=== PATIENT | male | born 1980 | race Caucasian/White ===

== ENCOUNTER 2017-05-15 17:51 | Emergency (ER) | payer BC ==
[~2017-05-15] VITALS: Ht 177.8 cm; Wt 72.7 kg
[2017-05-15 18:55] VITALS: BP 141/98
== END 2017-05-15 18:56 ==
LOC: ER 17:52
DX: Z04.1 Encounter for examination and observation following transport accident (principal); F10.129 Alcohol abuse with intoxication, unspecified; V89.2XXA Person injured in unspecified motor-vehicle accident, traffic, initial encounter; Y93.89 Activity, other specified; Y92.89 Other specified places as the place of occurrence of the external cause; Y99.8 Other external cause status
CPT/HCPCS: 99283

== ENCOUNTER 2018-09-11 19:05 | Observation (INO) | payer BC ==
[~2018-09-11] VITALS: Ht 175.3 cm; Wt 58.3 kg
[2018-09-11 19:57] LABS: BASOPHILS % (AUTO) 0.3 % (0-1); EOSINOPHILS % (AUTO) 0.1 % (0-6); HEMATOCRIT 47.3 % (42.0-52.0); HEMOGLOBIN 16.8 g/dl (14.0-17.9); LYMPHOCYTES # (AUTO) 1.7 X10'3 (1.1-4.8); LYMPHOCYTES % (AUTO) 10.3 % (21-51); MEAN CORPUSCULAR HEMOGLOBIN 33.8 PG (27.0-31.0); MEAN CORPUSCULAR HGB CONC 35.6 g/dL (33.0-36.5); MEAN CORPUSCULAR VOLUME 94.9 FL (78-98); MEAN PLATELET VOLUME 6.9 FL (7.4-10.4); MONOCYTES # (AUTO) 0.9 X10'3 (0-0.9); MONOCYTES % (AUTO) 5.6 % (2-12); NEUTROPHILS # (AUTO) 13.5 X10'3 (1.8-7.7); NEUTROPHILS % (AUTO) 83.7 % (42-75); PLATELET COUNT 267 X10'3 (140-440); RED BLOOD COUNT 4.98 X10'6 (4.70-6.10); WHITE BLOOD COUNT 16.1 X10'3 (4.5-11.0)
[2018-09-11 20:08] LABS: ALANINE AMINOTRANSFERASE 32 U/L (12-78); ALBUMIN 4.4 G/DL (3.4-5.0); ALBUMIN/GLOBULIN RATIO 1.4 (1.1-1.5); ALKALINE PHOSPHATASE 71 IU/L (46-116); ANION GAP 8 (8-16); ASPARTATE AMINO TRANSFERASE 17 U/L (10-37); BILIRUBIN,TOTAL 0.8 MG/DL (0.1-1.0); BLOOD UREA NITROGEN 10 MG/DL (7-18); BUN/CREATININE RATIO 9.3 (5.4-32.0); CALCIUM 9.1 MG/DL (8.5-10.1); CHLORIDE 97 MMOL/L (99-107); CREATININE 1.07 MG/DL (0.60-1.10); GLUCOSE 115 MG/DL (70-104); POTASSIUM 3.6 MMOL/L (3.5-5.1); SODIUM 134 MMOL/L (135-145); TOTAL CARBON DIOXIDE 28.6 MMOL/L (24-32); TOTAL PROTEIN 7.5 G/DL (6.4-8.2); eGFR 77 ML/MIN
[2018-09-11 20:48] LABS: CLARITY,URINE CLEAR (Clear); COLOR,URINE YELLOW (Yellow); GLUCOSE, URINE NEGATIVE (Neg); KETONES,URINE 15 mg/dl (Neg); LEUKOCYTE ESTERASE ,URINE NEGATIVE (Neg); NITRITES, URINE NEGATIVE (Neg); OCCULT BLOOD,URINE NEGATIVE (Neg); PH,URINE 7.5 (4.8-8.0); PROTEIN,URINE NEGATIVE (Neg); UROBILINOGEN,URINE 0.2 E.U/dL (0.2-1.0)
[2018-09-11 20:50] LABS: LIPASE 160 U/L (73-393)
[2018-09-11] MEDS ORDERED: normal saline 1000ML IV soln IVB ONE (20:50)
[2018-09-11] MEDS ORDERED: morphine 4 MG/ML inj SYRINge IV PRN ×3 (20:50→23:25)
[2018-09-11] MEDS ORDERED: ondansetron/PF 4mg/2ml inj IV ONE (20:50)
[2018-09-11 21:01] LABS: UA COLLECTION TYPE CLN CATCH MIDSTREAM
[2018-09-11] MEDS ORDERED: cefoxitin sod inj 2,000 MG in normal saline 100ml IV soln 100 ML IV ONE (23:05)
[2018-09-11] MEDS ORDERED: ceFOXitin 2 GM ADDVANTGE BAG 50 ML IV ONE (23:06)
--- NOTE | 2018-09-11 23:09 | NUR ---
Dr Mcconnell with pt, discussing poc.
[2018-09-11] MEDS ORDERED: ringers solution, lacted 1,000 ML IV SCH (23:22)
[2018-09-11] MEDS ORDERED: labetalol 20mg/4ml (5mg/ml) syringe IV PRN (23:25)
[2018-09-11] MEDS ORDERED: fentaNYL/PF 50MCG/1 ML 2ML syringe IV PRN ×2 (23:25)
[2018-09-11] MEDS ORDERED: hydrALAZINE 20mg/ml inj. IV PRN (23:25)
[2018-09-11] MEDS ORDERED: HYDROcodone/acetaminophen 5mg/325mg tablet PO PRN (23:25)
[2018-09-11] MEDS ORDERED: mag hydrox/Alum hydrox/simeth 30ml oral suspension PO PRN (23:25)
[2018-09-11] MEDS ORDERED: magnesium hydroxide 30ml (MOM) UD suspension PO PRN (23:25)
[2018-09-11] MEDS ORDERED: ondansetron/PF 4mg/2ml inj IV PRN ×2 (23:25)
[2018-09-11] MEDS ORDERED: morphine 2 MG/ML inj. syringe IV PRN ×2 (23:25)
[2018-09-11] MEDS ORDERED: acetaminophen 325mg tablet PO PRN ×2 (23:25)
[2018-09-12] VITALS (16 sets, daily range): BP systolic 108–153; BP diastolic 60–101
[2018-09-12] MEDS ORDERED: glycopyrrolate 0.2mg/ml inj ONE ×2 (00:12)
[2018-09-12] MEDS ORDERED: neostigmine methylsulfate 1 MG/ML 10ml vial ONE ×2 (00:12)
[2018-09-12] MEDS ORDERED: sevoflurane 250ml liquid IH ONE ×2 (00:12)
[2018-09-12] MEDS ORDERED: fentaNYL/PF 50MCG/1 ML 2ML syringe ONE (00:13)
[2018-09-12] MEDS ORDERED: ondansetron/PF 4mg/2ml inj ONE (00:14)
[2018-09-12] MEDS ORDERED: rocuronium 10mg/ml inj IV ONE (00:14)
[2018-09-12] MEDS ORDERED: LIDOcaine 2% (20mg/ml) 5ml vial ONE (00:14)
[2018-09-12] MEDS ORDERED: dexamethasone sod phosphate 4mg/ml inj. ONE (00:14)
[2018-09-12] MEDS ORDERED: midazolam 2 mg/2 ml injection ONE (00:14)
[2018-09-12] MEDS ORDERED: propofol inj 20 ML IV ONE (00:14)
[2018-09-12] MEDS ORDERED: BUPIVAcaine/PF 2.5 mg/ml (0.25%) 30ml vial ONE (00:27)
--- NOTE | 2018-09-12 00:55 | NUR ---
Received from OR via BED , accompanied by Anesthesiologist DR THRASHER and report given by Anesthesiolgist. PATIENT WAKING UP, DENIES PAIN, V/S WNL, NEUROVASCULAR CHECKS INTACT, 20G PIV LUE, SCD ON. BANDAIDS TO LAP SIGHTS OF ABDOMEN CDI
--- NOTE | 2018-09-12 01:35 | NUR ---
PATIENT A&OX4, DENIES PAIN, V/S WNL, NEUROVASCULAR CHECKS INTACT, 20G PIV LUE, SCD ON. BANDAIDS TO LAP SIGHTS OF ABDOMEN CDI .PATIENT TAKEN TO 346A WITH ALL BELONGINGS AND HOOKED UP TO MONITORS IN ROOM AND REPORT GIVEN TO RN WHO HAS TAKEN OVER PATIENT CARE.
--- NOTE | 2018-09-12 01:40 | NUR ---
Patient arrived to floor accompanied by significant other Yuridia, she is a Transcriptionist here at the hospital. Patient VSS. Alert and appropriate. Able to answer questions. Patient complaining of pain 5/10 to surgery site. Patient has 3 lap sites covered with bandaids CDI. Will continue with care.
[2018-09-12] MEDS: normal saline 1000ml 1,000 ML IV SCH ×4 (01:45→11:56)
--- NOTE | 2018-09-12 01:50 | NUR ---
Patient kindly refused 2 RN skin check to be done. States no skin issues.
[2018-09-12 04:51] LABS: ALBUMIN 3.7 G/DL (3.4-5.0); ANION GAP 7 (8-16); BLOOD UREA NITROGEN 9 MG/DL (7-18); BUN/CREATININE RATIO 8.7 (5.4-32.0); CALCIUM 9.3 MG/DL (8.5-10.1); CHLORIDE 106 MMOL/L (99-107); CREATININE 1.03 MG/DL (0.60-1.10); GLUCOSE 109 MG/DL (70-104); MEAN PLATELET VOLUME 7.6 FL (7.4-10.4); POTASSIUM 4.3 MMOL/L (3.5-5.1); SODIUM 141 MMOL/L (135-145); TOTAL CARBON DIOXIDE 28.1 MMOL/L (24-32); WHITE BLOOD COUNT 11.3 X10'3 (4.5-11.0); eGFR 80 ML/MIN
[2018-09-12 04:53] LABS: HEMATOCRIT 46.2 % (42.0-52.0); HEMOGLOBIN 16.1 g/dl (14.0-17.9); MEAN CORPUSCULAR HEMOGLOBIN 33.1 PG (27.0-31.0); MEAN CORPUSCULAR HGB CONC 34.9 g/dL (33.0-36.5); MEAN CORPUSCULAR VOLUME 94.7 FL (78-98); PLATELET COUNT 214 X10'3 (140-440); RED BLOOD COUNT 4.87 X10'6 (4.70-6.10); RED CELL DISTRIBUTION WIDTH 11.9 % (11.5-14.5)
[2018-09-12] MEDS ORDERED: NO HOME MEDS (05:03)
[2018-09-12 06:38] LABS: PLATELET ESTIMATE NORMAL; TOTAL CELLS COUNTED 100
--- NOTE | 2018-09-12 06:58 | NUR ---
Problems reprioritized. Patient report given, questions answered & plan of care reviewed with Anne-Marie ARRINGTON. Addendum: 09/12/18 at 0659 by Wilda Arechiga RN wrong nurse to report off to. Report to charge nurse Gómez.
[2018-09-12] MEDS: HYDROcodone/acetaminophen 10/325mg tab PO PRN ×2 (07:46→12:09)
[2018-09-12] MEDS ORDERED: HYDR-4353 PO (11:48)
--- NOTE | 2018-09-12 14:30 | NUR ---
PT. DISCHARGE IN A STABLE CONDITION. DISCHARGE PAPERWORK REVIEWED WITH PT. AND SPOUSE. [facility] BEDSIDE DELIVERED [facility] PRESCRIPTION. PT. AWARE TO F/U WITH MD QUINTANILLA IN ONE WEEK- CONTACT INFO PROVIDED. IV DC'D, BANDAGED, NO S/SX BLEEDING NOTED. WRISTBAND REMOVED. PT. LEFT WITH ALL OF HIS BELONGINGS. ESCORTED OUT OF THE HOSPITAL IN A W/C BY A STAFF MEMBER TO A PRIVATE VEHICLE. SPOUSE DROVE HIM HOME. PT. KNOW TO RETURN TO ER IF ANY CONCERNS.
== END 2018-09-12 14:32 | disposition home or self-care (01) ==
LOC: ER 19:06 → SUR 3N 09-12 01:50
PROVIDERS: ADMIT Hospitalist; ATTEND Family Medicine
DX: K35.80 Unspecified acute appendicitis (principal); R19.7 Diarrhea, unspecified; F17.200 Nicotine dependence, unspecified, uncomplicated
CPT/HCPCS: 36415; 44970; 74176; 80048; 80053; 81003; 83690; 85025; 85610; 87070; 96361; 96374; 96375; 96376; 99284; G0378; J0694; J1100; J2001; J2250; J2270; J2405; J2704; J2710; J3010; J3490; J7030; J7120; A4315; A7000